=== PATIENT | male | born 1955 | race Caucasian/White ===

== ENCOUNTER 2019-06-26 06:39 | Emergency (ER) | payer MEDICAID ==
[~2019-06-26] VITALS: Ht 188 cm; Wt 105.0 kg
[2019-06-26] MEDS ORDERED: IBUPROFEN 400MG TABLET PO ONE (07:15)
[2019-06-26 07:36] VITALS: BP 145/79
== END 2019-06-26 07:37 | disposition home or self-care (01) ==
LOC: ER 06:39
DX: R60.0 Localized edema (principal); Z00.00 Encounter for general adult medical examination without abnormal findings; Z98.890 Other specified postprocedural states
CPT/HCPCS: 99283